=== PATIENT | female | born 1980 | race African-American/Black ===

== ENCOUNTER 2021-02-28 13:46 | Outpatient (CLI) | payer OTHER ==
[2021-02-28 14:58] LABS: PLATELET COUNT 241 K/uL (152-353)
== END 2021-02-28 19:16 | disposition home or self-care (01) ==
LOC: RAD 13:46
PROVIDERS: ATTEND Nurse Practitioner Family
DX: Z03.89 Encounter for observation for other suspected diseases and conditions ruled out (principal)
CPT/HCPCS: 36415; 80053; 82728; 85027; 85379; 86140

== ENCOUNTER 2021-03-05 13:19 | Outpatient (CLI) | payer OTHER ==
[2021-03-05 14:29] LABS: PLATELET COUNT 254 K/uL (152-353)
== END 2021-03-05 20:27 | disposition home or self-care (01) ==
LOC: CT 13:19
PROVIDERS: ATTEND Nurse Practitioner Family
DX: B34.9 Viral infection, unspecified (principal); R10.9 Unspecified abdominal pain
CPT/HCPCS: 36415; 85027; 87502